=== PATIENT | female | born 1935 | race Hispanic/Latino ===

== ENCOUNTER 2023-04-10 09:15 | Inpatient (IN) | payer MEDICARE ==
[~2023-04-10] VITALS: Ht 167.6 cm; Wt 55.3 kg
[2023-04-10] VITALS (7 sets, daily range): BP systolic 158–175; BP diastolic 62–83; PULSE 58–71; RESP 16–19; TEMP 97.6–98.8; O2SAT 93–96
[~2023-04-10 09:15] MED LIST: ATORVASTATIN CA40 MG PO; HUMIRA40 MG/0.8; HYDROCODON-ACE1 EAC9; LEXAPRO20 MG PO; MELATONIN3 MG PO; MIRTAZAPINE15 MG PO; PROTONIX20 MG PO; RENA-VITE TABL0.8 MG; VALSARTAN-HCTZ1 EAC3; VITAMIN D31 ML
[2023-04-10] MEDS ORDERED: GENTAMICIN 80MG/NS 100 ML 200 ML IV ONE (10:10)
[2023-04-10] MEDS ORDERED: LACTATED RINGER'S 1,000 ML ONE (10:10)
[2023-04-10] MEDS ORDERED: PIPERACILLIN/TAZOBACTAM 3.375 GM VIAL ONE (10:10)
[2023-04-10] MEDS ORDERED: CLINDAMYCIN 600MG / 50ML 50 ML IV ONE (10:10)
[2023-04-10 10:11] LABS: BASOPHILS % 0.5 % (0.0-1.0); EOSINOPHILS # (AUTO) 0.3 (0.0-0.4); EOSINOPHILS % 5.3 % (0.0-6.0); HEMATOCRIT 32.3 % (34.2-44.1); HEMOGLOBIN 10.8 g/dL (12.0-16.0); LYMPHOCYTES # (AUTO) 2.1 (1.0-3.2); MEAN CORPUSCULAR HEMOGLOBIN 30.2 pg (28-32); MEAN CORPUSCULAR HGB CONC 33.4 g/dL (31-35); MEAN CORPUSCULAR VOLUME 90.2 fL (81-99); MONOCYTES # (AUTO) 0.7 (0.2-0.8); MONOCYTES % 12.2 % (4.4-11.3); NEUTROPHILS # (AUTO) 2.8 (2.1-6.9); NEUTROPHILS % 46.8 % (38.7-80.0); PLATELET COUNT 297 x10e3/uL (140-360); RED BLOOD COUNT 3.58 x10e6/uL (3.6-5.1); RED CELL DISTRIBUTION WIDTH 13.2 % (11.7-14.4); WHITE BLOOD COUNT 6.06 x10e3/uL (4.8-10.8)
[2023-04-10 10:41] LABS: CREATININE, SERUM 1.09 mg/dL (0.57-1.11)
[2023-04-10] MEDS ORDERED: LIDOCAINE 2%/ EPINEPHRINE 20ML MDV ONE (12:02)
[2023-04-10] MEDS ORDERED: GENTAMICIN SULFATE 40 MG/ML 2 ML VIAL ONE (12:02)
[2023-04-10] MEDS ORDERED: BACITRACIN ZINC 15 GM OINT ONE (12:03)
[2023-04-10] MEDS ORDERED: BUPIVACAINE HCL 0.5% INJ 30 ML VIAL INJ ONE (12:03)
[2023-04-10] MEDS ORDERED: IOPAMIDOL 610MG/1ML 300 MG/ML VIAL IV ONE (12:03)
[2023-04-10] MEDS ORDERED: DEXAMETHASONE SOD PHOS INJ 4 MG/ML SDV ONE (12:09)
[2023-04-10] MEDS ORDERED: PROPOFOL IV EMULSION 10 MG/ML 20 ML VIAL ONE (12:09)
[2023-04-10] MEDS ORDERED: SEVOFLURANE INHAL SOLN 250 ML PEN BTL ONE (12:09)
[2023-04-10] MEDS ORDERED: ONDANSETRON HCL INJ 2MG/ML 2ML 2 MG/ML VIAL ONE (12:09)
[2023-04-10] MEDS ORDERED: LIDOCAINE HCL 2% LOCAL INJ 5 ML SDV VIAL INJ ONE (12:09)
[2023-04-10] MEDS ORDERED: FENTANYL CITRATE/PF 100MCG/2 ML INJ ONE ×2 (12:17→15:39)
[2023-04-10] MEDS ORDERED: SUCCINYLCHOLINE CHLORIDE 20 MG/ML 10ML VIAL ONE (13:41)
[2023-04-10] MEDS ORDERED: ALBUTEROL/IPRATROPIUM 3 ML NEB ONE (15:00)
[2023-04-10] MEDS ORDERED: PHENAZOPYRIDINE HCL 100 MG TAB PO PRN (15:00)
[2023-04-10] MEDS ORDERED: ACETAMINOPHEN 1000 MG/100 ML IV PRN (15:00)
[2023-04-10] MEDS ORDERED: ONDANSETRON HCL INJ 2MG/ML 2ML 2 MG/ML VIAL IV PRN (15:00)
[2023-04-10 16:16] LABS: BASOPHILS % 0.4 % (0.0-1.0); EOSINOPHILS # (AUTO) 0.2 (0.0-0.4); EOSINOPHILS % 2.3 % (0.0-6.0); HEMATOCRIT 34.9 % (34.2-44.1); HEMOGLOBIN 11.5 g/dL (12.0-16.0); LYMPHOCYTES # (AUTO) 1.6 (1.0-3.2); LYMPHOCYTES % 21.3 % (18.0-39.1); MEAN CORPUSCULAR HEMOGLOBIN 29.9 pg (28-32); MEAN CORPUSCULAR VOLUME 90.9 fL (81-99); MONOCYTES # (AUTO) 0.3 (0.2-0.8); NEUTROPHILS # (AUTO) 5.2 (2.1-6.9); NEUTROPHILS % 71.9 % (38.7-80.0); PLATELET COUNT 275 x10e3/uL (140-360); RED BLOOD COUNT 3.84 x10e6/uL (3.6-5.1); RED CELL DISTRIBUTION WIDTH 13.2 % (11.7-14.4); WHITE BLOOD COUNT 7.29 x10e3/uL (4.8-10.8)
[2023-04-10 16:25] LABS: ANION GAP 13.9 mmol/L (8-16); CALCIUM 9.7 mg/dL (8.4-10.2); POTASSIUM 3.9 mmol/L (3.5-5.1)
[2023-04-10] MEDS: SODIUM CHLORIDE 0.9% 1000ML 1,000 ML IV SCH (16:39)
[2023-04-10] MEDS: ACETAMINOPHEN/CODEINE 300MG - 30MG TAB PO PRN ×2 (16:43→21:21)
[2023-04-10] MEDS: SENNA-S TABLET PO SCH (17:00)
[2023-04-11] VITALS (7 sets, daily range): BP systolic 161–181; BP diastolic 61–68; PULSE 68–79; RESP 15–20; TEMP 99.1–99.4; O2SAT 94–98
[2023-04-11] MEDS: ACETAMINOPHEN/CODEINE 300MG - 30MG TAB PO PRN ×2 (02:27→06:37)
[2023-04-11 05:11] LABS: BASOPHILS % 0.2 % (0.0-1.0); HEMOGLOBIN 11.3 g/dL (12.0-16.0); LYMPHOCYTES # (AUTO) 1.7 (1.0-3.2); LYMPHOCYTES % 9.6 % (18.0-39.1); MEAN CORPUSCULAR HEMOGLOBIN 30.2 pg (28-32); MEAN CORPUSCULAR HGB CONC 34.2 g/dL (31-35); MEAN CORPUSCULAR VOLUME 88.2 fL (81-99); MONOCYTES # (AUTO) 1.2 (0.2-0.8); MONOCYTES % 7.1 % (4.4-11.3); NEUTROPHILS # (AUTO) 14.3 (2.1-6.9); NEUTROPHILS % 82.5 % (38.7-80.0); PLATELET COUNT 275 x10e3/uL (140-360); RED BLOOD COUNT 3.74 x10e6/uL (3.6-5.1); RED CELL DISTRIBUTION WIDTH 12.9 % (11.7-14.4); WHITE BLOOD COUNT 17.35 x10e3/uL (4.8-10.8)
[2023-04-11 05:35] LABS: ANION GAP 13.7 mmol/L (8-16); CALCIUM 9.5 mg/dL (8.4-10.2); CREATININE, SERUM 1.02 mg/dL (0.57-1.11); POTASSIUM 3.7 mmol/L (3.5-5.1)
[2023-04-11] MEDS: SODIUM CHLORIDE 0.9% 1000ML 1,000 ML IV SCH ×2 (05:35→21:03)
[2023-04-11] MEDS ORDERED: MAGNESIUM HYDROXIDE 30 ML UDC PO PRN (08:30)
[2023-04-11] MEDS ORDERED: ONDANSETRON HCL INJ 2MG/ML 2ML 2 MG/ML VIAL IV PRN (08:30)
[2023-04-11] MEDS ORDERED: MELATONIN 5 MG TABLET PO PRN (08:30)
[2023-04-11] MEDS: SENNA-S TABLET PO SCH ×2 (09:26→16:24)
[2023-04-11] MEDS: VALSARTAN 160 MG TAB PO SCH (09:26)
[2023-04-11] MEDS: HYDROCODONE/APAP 10MG-325MG TAB PO PRN ×2 (09:26→18:47)
[2023-04-11] MEDS: POLYETHYLENE GLYCOL 3350 17 GM PACK PO SCH ×2 (09:26→16:24)
[2023-04-11] MEDS: PANTOPRAZOLE SOD 40 MG TABEC PO SCH (09:26)
[2023-04-11] MEDS: ESCITALOPRAM OXALATE 10 MG TAB PO SCH (09:27)
[2023-04-11] MEDS: Morphine 4mg INJECTION 4 MG/ML INJ IV PRN ×3 (12:06→21:05)
[2023-04-11] MEDS: HYDRALAZINE HCL 20 MG/ML VIAL IV PRN ×2 (12:06→16:48)
[2023-04-11] MEDS: ONDANSETRON HCL 4 MG ORAL DISINTEGRATING TAB PO PRN ×3 (12:06→21:04)
[2023-04-11] MEDS ORDERED: MAGNESIUM/ALUMINUM/SIMETHICONE 30 ML UDC PO PRN (21:00)
[2023-04-11] MEDS ORDERED: MIRTAZAPINE 15 MG TAB PO SCH (21:00)
[2023-04-11] MEDS ORDERED: ATORVASTATIN 40 MG TAB PO SCH (21:00)
[2023-04-12] VITALS: BP 183/78; PULSE 75; RESP 19; TEMP 98.8; O2SAT 98
[2023-04-12] MEDS: HYDRALAZINE HCL 20 MG/ML VIAL IV PRN (05:05)
[2023-04-12] MEDS: Morphine 4mg INJECTION 4 MG/ML INJ IV PRN (05:06)
[2023-04-12 05:25] LABS: BASOPHILS % 0.1 % (0.0-1.0); EOSINOPHILS % 0.1 % (0.0-6.0); HEMATOCRIT 33.9 % (34.2-44.1); HEMOGLOBIN 11.5 g/dL (12.0-16.0); LYMPHOCYTES # (AUTO) 3.2 (1.0-3.2); LYMPHOCYTES % 22.5 % (18.0-39.1); MEAN CORPUSCULAR HEMOGLOBIN 29.8 pg (28-32); MEAN CORPUSCULAR HGB CONC 33.9 g/dL (31-35); MEAN CORPUSCULAR VOLUME 87.8 fL (81-99); MONOCYTES # (AUTO) 1.9 (0.2-0.8); MONOCYTES % 13.6 % (4.4-11.3); NEUTROPHILS % 63.5 % (38.7-80.0); PLATELET COUNT 301 x10e3/uL (140-360); RED BLOOD COUNT 3.86 x10e6/uL (3.6-5.1); RED CELL DISTRIBUTION WIDTH 13.2 % (11.7-14.4)
[2023-04-12 05:55] LABS: ANION GAP 12.6 mmol/L (8-16); CALCIUM 9.3 mg/dL (8.4-10.2); CREATININE, SERUM 0.94 mg/dL (0.57-1.11); POTASSIUM 3.6 mmol/L (3.5-5.1)
[2023-04-12 07:38] VITALS: BP 141/59; PULSE 80; RESP 19; TEMP 98.2; O2SAT 98
[2023-04-12] MEDS ORDERED: MAGNESIUM HYDROXIDE 30 ML UDC PO PRN (08:00)
[2023-04-12] MEDS ORDERED: ONDANSETRON HCL INJ 2MG/ML 2ML 2 MG/ML VIAL IV PRN (08:00)
[2023-04-12] MEDS: ESCITALOPRAM OXALATE 10 MG TAB PO SCH (09:00)
[2023-04-12] MEDS: PANTOPRAZOLE SOD 40 MG TABEC PO SCH (09:00)
[2023-04-12] MEDS: VALSARTAN 160 MG TAB PO SCH (09:00)
[2023-04-12] MEDS: SENNA-S TABLET PO SCH ×2 (10:57→17:44)
[2023-04-12] MEDS: POLYETHYLENE GLYCOL 3350 17 GM PACK PO SCH ×2 (10:57→17:44)
[2023-04-12 11:05] VITALS: BP 141/59; PULSE 80; RESP 19; TEMP 98.2; O2SAT 98
[2023-04-12 11:23] VITALS: BP 142/55; PULSE 78; RESP 19; TEMP 97.9; O2SAT 99
[2023-04-12] MEDS ORDERED: ACETAMINOPHEN/CODEINE 300MG - 30MG TAB PO PRN (13:30)
[2023-04-12 15:49] VITALS: BP 129/61; PULSE 77; RESP 17; TEMP 98.3; O2SAT 99
[2023-04-12] MEDS ORDERED: TYLENOL 3 PO (17:01)
[2023-04-12] MEDS ORDERED: LEVOFLOXACIN250 MG PO (17:01)
== END 2023-04-12 18:19 | disposition home or self-care (01) | DRG 748 ==
LOC: OR 09:15 → PACU V 15:00 → MED/SURG 16:20
PROVIDERS: ADMIT Internal Medicine; ATTEND Internal Medicine
PROC: 0JUC0KZ Supplement of Pelvic Region Subcutaneous Tissue and Fascia with Nonautologous Tissue Substitute, Open Approach (ICD-10-PCS; principal; 2023-04-10 13:23)
PROC: BT141ZZ Fluoroscopy of Kidneys, Ureters and Bladder using Low Osmolar Contrast (ICD-10-PCS; 2023-04-10 13:23)
DX: N81.10 Cystocele, unspecified (principal); D84.821 Immunodeficiency due to drugs; E87.1 Hypo-osmolality and hyponatremia; N39.3 Stress incontinence (female) (male); R33.9 Retention of urine, unspecified; F41.9 Anxiety disorder, unspecified; F32.A Depression, unspecified; G47.00 Insomnia, unspecified; K21.9 Gastro-esophageal reflux disease without esophagitis; E78.5 Hyperlipidemia, unspecified; I10 Essential (primary) hypertension; G89.18 Other acute postprocedural pain; Z79.60 Long term (current) use of unspecified immunomodulators and immunosuppressants
CPT/HCPCS: 36415; 71046; 74420; 80048; 83735; 85025; 93005; 94799; 96361; C1758; C1762; J0330; J1100; J1580; J2001; J2270; J2405; J2543; J7030; Q0162